=== PATIENT | female | born 1960 | race Caucasian/White ===

== ENCOUNTER 2016-10-12 11:43 | Observation (INO) | payer BC, OTHER ==
[2016-10-12] VITALS (9 sets, daily range): BP systolic 119–149; BP diastolic 59–83; PULSE 57–76; RESP 16–20; TEMP 97.6–98.4; O2SAT 96–98
[~2016-10-12] VITALS: Ht 167.6 cm; Wt 72.5 kg
[~2016-10-12 11:43] MED LIST: AMIT25TA9 PO; BUPR75TA PO; BUTA1CAP PO; DICL1GEL TOPICAL; HYDR-3580 PO; MELO-1 PO; TRIA.1%T TOP
--- NOTE | 2016-10-12 13:25 | PD ---
HPI Chief Complaint: Headache Time Seen by Provider: 12:35 Travel History International Travel<30 days: No Contact w/Intl Traveler<30days: No Traveled to known affect area: No History of Present Illness HPI 56-year-old female came to the emergency room with history of headache which is chronic but also on and off slurred speech since yesterday and right arm heaviness today. Patient cannot give an exact time when she noticed her right arm heaviness. However her daughter had taken her to the [place] urgent care where as the nurse was examining she noticed a heaviness. At that point she was recommended to go to an emergency room since these could be strokelike symptoms. Patient does not have a primary care. She does see a neurologist Dr. Aly for her chronic pain. Patient drinks alcohol every day and as per her own admission 3-4 drinks. Her last drink was last night which was beer and a glass of wine. Vital signs are stable. Currently she does not have slurred speech. PFSH Past Medical History Narrative Medical List of her past medical, surgical, social and family history is reviewed from the nursing note. Arthritis: Yes Anxiety: Yes Depression: Yes Cancer: No Cardiovascular Problems: No Cerebrovascular Accident: No Diminished Hearing: No Endocrine: No Gastrointestinal Disorders: No GERD: No Genitourinary: No Headaches: Yes Hiatal Hernia: No Immune Disorder: No Implanted Vascular Access Dvce: No Medical other: Yes (vertigo) Musculoskeletal: Yes Neurologic: Yes Psychiatric: Yes Respiratory: No Migraines: No Myocardial Infarction: No Seizures: No Ulcer: No Menopausal: Yes : 9 Para: 3 Past Surgical History Abdominal Surgery: Yes (APPENDECTOMY) Section: Yes (X 3) Gynecologic Surgery: Yes () Social History Alcohol Use: Yes (2 DRINKS DAILY-MOSTLY WINE) Tobacco Use: Yes (1 CIG A DAY) Substance Use: No Allergies-Medications (Allergen,Severity, Reaction): Coded Allergies: penicillin G (Unverified Allergy, Unknown, 10/12/16) Comments List of her allergies reviewed from the nursing note. Reported Meds & Prescriptions Reported Meds & Active Scripts Active Amitriptyline (Amitriptyline HCl) 25 Mg Tab 25-50 Mg PO HS Bupropion HCl 75 Mg Tab 75 Mg PO TID Reported Fioricet (Tnnqyxvrik-Mzuyazgqqdinp-Vyfcayxv) 50-300-40 Mg Cap 1 Cap PO Q6HR PRN Meloxicam 15 Mg Tab 15 Mg PO DAILY Hydrocodone-Acetaminophen 7.5-325 mg Tab 1 Tab PO Q4H PRN Narrative Medication List of her home medications reviewed from the nursing note. Review of Systems Except as stated in HPI: all other systems reviewed are Neg Physical Exam Narrative GENERAL: Awake, alert, no obvious distress SKIN: Focused skin assessment warm/dry. HEAD: Atraumatic. Normocephalic. EYES: Pupils equal and round. No scleral icterus. No injection or drainage. ENT: No nasal bleeding or discharge. Mucous membranes pink and moist. NECK: Trachea midline. No JVD. CARDIOVASCULAR: Regular rate and rhythm. No murmur appreciated. RESPIRATORY: No accessory muscle use. Clear to auscultation. Breath sounds equal bilaterally. GASTROINTESTINAL: Abdomen soft, non-tender, nondistended. Hepatic and splenic margins not palpable. MUSCULOSKELETAL: No obvious deformities. No clubbing. No cyanosis. No edema. NEUROLOGICAL: Awake and alert. No obvious cranial nerve deficits. Motor grossly within normal limits. Normal speech. NIH stroke score of 0 PSYCHIATRIC: Appropriate mood and affect; insight and judgment normal. Data Data Last Documented VS Vital Signs Date Time Temp Pulse Resp B/P (MAP) Pulse Ox O2 Delivery O2 Flow Rate FiO2 10/12/16 14:30 58 18 139/73 (95) 96 Room Air 10/12/16 11:44 98.4 Orders Orders Electrocardiogram (10/12/16 13:25) Prothrombin Time / Inr (Pt) (10/12/16 13:25) Complete Blood Count With Diff (10/12/16 13:25) Basic Metabolic Panel (Bmp) (10/12/16 13:25) Troponin I (10/12/16 13:25) Urinalysis - C+S If Indicated (10/12/16 13:25) Ct Brain W/O Iv Contrast(Rout) (10/12/16 13:25) Ecg Monitoring (10/12/16 13:25) Iv Access Insert/Monitor (10/12/16 13:25) Oximetry (10/12/16 13:25) Sodium Chloride 0.9% Flush (Ns Flush) (10/12/16 13:30) Mra Brain W/O Contrast (Cow) (10/12/16 ) Admit Order (Ed Use Only) (10/12/16 16:00) Mri Brain W/O Contrast (10/12/16 ) Labs Laboratory Tests Test 10/12/16 13:50 10/12/16 14:40 White Blood Count 4.5 TH/MM3 Red Blood Count 4.64 MIL/MM3 Hemoglobin 14.1 GM/DL Hematocrit 42.8 % Mean Corpuscular Volume 92.3 FL Mean Corpuscular Hemoglobin 30.5 PG Mean Corpuscular Hemoglobin Concent 33.0 % Red Cell Distribution Width 11.9 % Platelet Count 294 TH/MM3 Mean Platelet Volume 8.9 FL Neutrophils (%) (Auto) 55.4 % Lymphocytes (%) (Auto) 33.2 % Monocytes (%) (Auto) 8.2 % Eosinophils (%) (Auto) 2.0 % Basophils (%) (Auto) 1.2 % Neutrophils # (Auto) 2.5 TH/MM3 Lymphocytes # (Auto) 1.5 TH/MM3 Monocytes # (Auto) 0.4 TH/MM3 Eosinophils # (Auto) 0.1 TH/MM3 Basophils # (Auto) 0.1 TH/MM3 CBC Comment DIFF FINAL Differential Comment Prothrombin Time 10.0 SEC Prothromb Time International Ratio 0.9 RATIO Blood Urea Nitrogen 12 MG/DL Creatinine 0.61 MG/DL Random Glucose 104 MG/DL Calcium Level 9.6 MG/DL Sodium Level 141 MEQ/L Potassium Level 3.7 MEQ/L Chloride Level 107 MEQ/L Carbon Dioxide Level 25.8 MEQ/L Anion Gap 8 MEQ/L Estimat Glomerular Filtration Rate 101 ML/MIN Troponin I LESS THAN 0.02 NG/ML Ethyl Alcohol Level LESS THAN 3 MG/DL Urine Color LIGHT-YELLOW Urine Turbidity CLEAR Urine pH 6.5 Urine Specific [place] 1.010 Urine Protein NEG mg/dL Urine Glucose (UA) NEG mg/dL Urine Ketones NEG mg/dL Urine Occult Blood NEG Urine Nitrite NEG Urine Bilirubin NEG Urine Urobilinogen LESS THAN 2.0 MG/DL Urine Leukocyte Esterase SMALL Urine WBC 5 /hpf Urine Squamous Epithelial Cells 2 /hpf Urine Mucus FEW /lpf Microscopic Urinalysis Comment CULT NOT INDICATED Urine Opiates Screen NEG Urine Buprenorphine NEG Heroin Level NEG Oxycodone Level POS Urine Methadone Level NEG Urine Hydromorphone Level NEG Urine Fentanyl Level NEG Urine Barbiturates Screen POS Urine Barbiturates POS Urine Gabapentin NEG Urine Phencyclidine (PCP) Level NEG Urine MDPV + Mephedrone NEG Urine Amphetamines Screen NEG Urine MDMA & Metabolites NEG Urine Benzodiazepines Screen NEG Urine Cocaine Screen NEG Urine Cannabinoids Screen NEG Urine Synthetic THC (K2) NEG MDM Medical Decision Making Medical Screen Exam Complete: Yes Emergency Medical Condition: Yes Medical Record Reviewed: Yes Interpretation(s) Twelve-lead EKG was reviewed by me. Normal sinus rhythm, normal axis, nonspecific ST-T wave changes. Heart rate of 63 bpm. Differential Diagnosis TIA, narcotics related slurred speech Narrative Course 4:06 PM blood test results are within acceptable limits. CT scan of her head was negative. I have ordered MRI of her brain and MRA. I have admitted her to the residents for 24-hour observation. I discussed this with the patient and her daughter and they are agreeable to the plan. Procedures EKG Prior to Arrival: No Diagnosis Primary Impression: TIA (transient ischemic attack) Qualified Codes: G45.9 - Transient cerebral ischemic attack, unspecified Admitting Information Admitting Physician Requests: Observation Ofe Ruffin MD Oct 12, 2016 13:25
[2016-10-12] MEDS ORDERED: SODIUM CHLORIDE 0.9% FLUSH 10 ML FLUSH IVF PRN (13:30)
[2016-10-12 14:26] LABS: AUTOMATED NEUTROPHIL # 2.5 TH/MM3 (1.8-7.7); BASOPHIL # 0.1 TH/MM3 (0-0.2); BASOPHIL % 1.2 % (0.0-2.0); EOSINOPHIL # 0.1 TH/MM3 (0-0.4); HEMATOCRIT 42.8 % (35.0-46.0); HEMO FLAGS DIFF FINAL; LYMPH % 33.2 % (9.0-44.0); LYMPHOCYTE # 1.5 TH/MM3 (1.0-4.8); MEAN CELL VOLUME 92.3 FL (80.0-100.0); MEAN CORPUSCULAR HEMOGLOBIN 30.5 PG (27.0-34.0); MONO % 8.2 % (0.0-8.0); NEUT % 55.4 % (16.0-70.0); PLATELET COUNT 294 TH/MM3 (150-450); RED BLOOD COUNT 4.64 MIL/MM3 (4.00-5.30); RED CELL DISTRIBUTION WIDTH 11.9 % (11.6-17.2); WHITE BLOOD COUNT 4.5 TH/MM3 (4.0-11.0)
[2016-10-12 14:43] LABS: INTERNATIONAL NORMALIZED RATIO 0.9 RATIO
[2016-10-12 14:57] LABS: ANION GAP 8 MEQ/L (5-15); BICARBONATE 25.8 MEQ/L (21.0-32.0); BLOOD UREA NITROGEN 12 MG/DL (7-18); CHLORIDE 107 MEQ/L (98-107); GLOMERULAR FILTRATION RATE 101 ML/MIN (>89); POTASSIUM 3.7 MEQ/L (3.5-5.1); SODIUM (NA) 141 MEQ/L (136-145)
--- NOTE | 2016-10-12 15:00 | RADRPT ---
EXAM DATE/TIME: 10/12/2016 14:38 [facility] COMPARISON: No previous studies available for comparison. INDICATIONS : Pressure and pain behind right eye . RADIATION DOSE: 56.46 CTDIvol (mGy) MEDICAL HISTORY : Migraines SURGICAL HISTORY : Appendectomy. section. ENCOUNTER: Initial ACUITY: 1 day PAIN SCALE: 10/10 LOCATION: Right cranial TECHNIQUE: Multiple contiguous axial images were obtained of the head. Using automated exposure control and adj ustment of the mA and/or kV according to patient size, radiation dose was kept as low as reasonably a chievable to obtain optimal diagnostic quality images. DICOM format image data is available electro nically for review and comparison. FINDINGS: CEREBRUM: The ventricles are normal for age. No evidence of midline shift, mass lesion, hemorrhage or acute in farction. No extra-axial fluid collections are seen. POSTERIOR FOSSA: The cerebellum and brainstem are intact. The 4th ventricle is midline. The cerebellopontine angle i s unremarkable. EXTRACRANIAL: The visualized portion of the orbits is intact. SKULL: The calvaria is intact. No evidence of skull fracture. CONCLUSION: Normal examination. Iglesia Mccurdy MD on October 12, 2016 at 14:58 Board Certified Radiologist. This report was verified electronically.
[2016-10-12 15:43] LABS: BLOOD, URINE NEG (NEG); COMMENT (UR) CULT NOT INDICATED; CULTURE IF INDICATED CULT NOT INDICATED; GLUCOSE,URINE NEG (NEG); KETONE, URINE NEG (NEG); MUCUS URINE FEW /lpf (OCC); NITRITE,URINE NEG (NEG); PH, URINE 6.5 (5.0-8.5); SQUAMOUS EPITHELIAL CELL URINE 2 /hpf (0-5); URINE COLOR LIGHT-YELLOW (YELLW/STRAW)
[2016-10-12] MEDS ORDERED: SODIUM CHLORIDE 0.9% FLUSH 10 ML FLUSH IV FLUSH PRN (16:45)
--- NOTE | 2016-10-12 16:45 | HHI.HP ---
HPI Service Family Medicine Primary Care Physician No Primary Care Physician Admission Diagnosis TIA Diagnoses: International Travel<30 Days: No Contact w/Intl Traveler<30days: No Known Affected Area: No History of Present Illness Patient is a 56-year-old female, with long hx of vertigo and allergic congestion , presenting for a episode of vertigo this morning and an episode of slurred speech yesterday. Patient states she got up at 6:30 AM this morning because she felt nausea and dizziness. She has had nausea and dizziness over the past few years. Was much worse this morning than it has been before. She was so disoriented that she couldn't even walk to the bathroom and she banged into osorio and doors on the way to her bathroom. While she was dizzy and nauseous she also felt her right arm tingling and weak. These symptoms soon resolved. He has had a continued headache over the last few days especially over the right temporalis area. She was swimming yesterday and she thinks she can feel that her right ear is clotted. However she has had issues with her right ear in the past. She has gone to multiple doctors and attempts to be treated for assumed to Mnire's disease but because she has issues obtaining insurance this has not been possible. Patient states she has had multiple episodes of dizziness over the last few years; consisting of dizziness at work and feeling off balance at work. 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 She spent the last 3 days outdoors working and went outside to the yesterday. Outside at the yesterday she had an episode where her speech was slurred. She was not drinking any alcohol at this time and she drank sufficient fluids throughout the day. (Margarita Bowles MD R2) Review of Systems Constitutional: DENIES: Fatigue, Fever Endocrine: DENIES: Abnorml menstrual pattern Eyes: DENIES: Diplopia, Eye inflammation Ears, nose, mouth, throat: DENIES: Hoarseness, Odynophagia Respiratory: DENIES: Snoring, Wheezing Cardiovascular: DENIES: Syncope, Claudication Gastrointestinal: DENIES: Bloody stools, Difficulty Swallowing Genitourinary: DENIES: Urinary frequency, Vaginal discharge Musculoskeletal: DENIES: Stiffness Integumentary: DENIES: Rash Hematologic/lymphatic: DENIES: Lymphadenopathy Immunologic/allergic: DENIES: Urticaria Neurologic: DENIES: Tremor Psychiatric: DENIES: Depression, Delusions (Margarita Bowles MD R2) Past Family Social History Past Medical History anxiety 2 herniated discs in back migraines for many years vertigo since 1996 - was told by that she has Mnire's disease, but she cannot follow up because she did not have insurance Past Surgical History c/s x 2 appendectomy (Margarita Bowles MD R2) Allergies: Coded Allergies: penicillin G (Unverified Allergy, Unknown, 10/12/16) Family History father- [place] at 46 mother - breast ca at 62 Social History denies tobacco 4 glasses of wine per day, last drink was last night THC use, no IV drug use lives at home with , 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 SKIN: No rashes, ecchymoses or lesions. Cool and dry. HEAD: Atraumatic. Normocephalic. No temporal or scalp tenderness. EYES: Pupils equal round and reactive. Extraocular motions intact. No scleral icterus. No injection or drainage. ENT: Nose without bleeding, purulent drainage or septal hematoma. Throat without erythema, tonsillar hypertrophy or exudate. Uvula midline. Airway patent. Tympanic membrane visible and ears bilaterally. No erythema, pus, or cerumen blocking tympanic membrane NECK: Trachea midline. No JVD or lymphadenopathy. Supple, nontender, no meningeal signs. CARDIOVASCULAR: Regular rate and rhythm without murmurs, gallops, or rubs. RESPIRATORY: Clear to auscultation. Breath sounds equal bilaterally. No wheezes , rales, or rhonchi. GASTROINTESTINAL: Abdomen soft, non-tender, nondistended. No hepato-splenomegaly , or palpable masses. No guarding. MUSCULOSKELETAL: Extremities without clubbing, cyanosis, or edema. No joint tenderness, effusion, or edema noted. No calf tenderness. Negative Homans sign bilaterally. NEUROLOGICAL: Awake and alert. Cranial nerves II through XII intact. Motor and sensory grossly within normal limits. Five out of 5 muscle strength in all muscle groups. Normal speech. Laboratory Laboratory Tests Test 10/12/16 13:50 10/12/16 14:40 White Blood Count 4.5 Red Blood Count 4.64 Hemoglobin 14.1 Hematocrit 42.8 Mean Corpuscular Volume 92.3 Mean Corpuscular Hemoglobin 30.5 Mean Corpuscular Hemoglobin Concent 33.0 Red Cell Distribution Width 11.9 Platelet Count 294 Mean Platelet Volume 8.9 Neutrophils (%) (Auto) 55.4 Lymphocytes (%) (Auto) 33.2 Monocytes (%) (Auto) 8.2 Eosinophils (%) (Auto) 2.0 Basophils (%) (Auto) 1.2 Neutrophils # (Auto) 2.5 Lymphocytes # (Auto) 1.5 Monocytes # (Auto) 0.4 Eosinophils # (Auto) 0.1 Basophils # (Auto) 0.1 CBC Comment DIFF FINAL Differential Comment Prothrombin Time 10.0 Prothromb Time International Ratio 0.9 Blood Urea Nitrogen 12 Creatinine 0.61 Random Glucose 104 Calcium Level 9.6 Sodium Level 141 Potassium Level 3.7 Chloride Level 107 Carbon Dioxide Level 25.8 Anion Gap 8 Estimat Glomerular Filtration Rate 101 Troponin I LESS THAN 0.02 Urine Color LIGHT-YELLOW Urine Turbidity CLEAR Urine pH 6.5 Urine Specific [place] 1.010 Urine Protein NEG Urine Glucose (UA) NEG Urine Ketones NEG Urine Occult Blood NEG Urine Nitrite NEG Urine Bilirubin NEG Urine Urobilinogen LESS THAN 2.0 Urine Leukocyte Esterase SMALL Urine WBC 5 Urine Squamous Epithelial Cells 2 Urine Mucus FEW Microscopic Urinalysis Comment CULT NOT INDICATED (Margarita Bowles MD R2) Result Diagram: 10/12/16 1350 10/12/16 1350 Caprini VTE Risk Assessment Caprini VTE Risk Assessment: No/Low Risk (score <= 1) Caprini Risk Assessment Model Point Value = 1 Point Value = 2 Point Value = 3 Point Value = 5 Age 41-60 Minor surgery BMI > 25 kg/m2 Swollen legs Varicose veins or History of unexplained or recurrent spontaneous Oral contraceptives or hormone replacement Sepsis (< 1 month) Serious lung disease, including pneumonia (< 1 month) Abnormal pulmonary function Acute myocardial infarction Congestive heart failure (< 1 month) History of inflammatory bowel disease Medical patient at bed rest Age 61-74 Arthroscopic surgery Major open surgery (> 45 min) Laparoscopic surgery (> 45 min) Malignancy Confined to bed (> 72 hours) Immobilizing plaster cast Central venous access Age >= 75 History of VTE Family history of VTE Factor V Leiden Prothrombin [id number] Lupus anticoagulant Anticardiolipin antibodies Elevated serum homocysteine Heparin-induced thrombocytopenia Other congenital or acquired thrombophilia Stroke (< 1 month) Elective arthroplasty Hip, pelvis, or leg fracture Acute spinal cord injury (< 1 month) Prophylaxis Regimen Total Risk Factor Score Risk Level Prophylaxis Regimen 0-1 Low Early ambulation 2 Moderate Order ONE of the following: *Sequential Compression Device (SCD) *Heparin 5000 units SQ BID 3-4 Higher Order ONE of the following medications: *Heparin 5000 units SQ TID *Enoxaparin/Lovenox 40 mg SQ daily (WT < 150 kg, CrCl > 30 mL/min) *Enoxaparin/Lovenox 30 mg SQ daily (WT < 150 kg, CrCl > 10-29 mL/min) *Enoxaparin/Lovenox 30 mg SQ BID (WT < 150 kg, CrCl > 30 mL/min) AND/OR *Sequential Compression Device (SCD) 5 or more Highest Order ONE of the following medications: *Heparin 5000 units SQ TID (Preferred with Epidurals) *Enoxaparin/Lovenox 40 mg SQ daily (WT < 150 kg, CrCl > 30 mL/min) *Enoxaparin/Lovenox 30 mg SQ daily (WT < 150 kg, CrCl > 10-29 mL/min) *Enoxaparin/Lovenox 30 mg SQ BID (WT < 150 kg, CrCl > 30 mL/min) AND *Sequential Compression Device (SCD) (Margarita Bowles MD R2) Assessment and Plan Assessment and Plan 56-year-old female, hx of chronic migraine and vertigo, presents for episode of vertigo and disorientation this AM; TIA vs. BPPV vs. Mnire's disease. Code Status Full Code (Margarita Bowles MD R2) Attending Attestation Patient seen and examined. Case reviewed and discussed with the resident team. Agree with plan of care as discussed with me and documented in the resident note. pt seen on admission with residents in ED. observed their H&P and discussed the pts management. (Khushi Mcniel MD) Problem List: (1) Anxiety ICD Codes: F41.9 - Anxiety disorder, unspecified Status: Chronic Plan: Patient states she has chronic anxiety and has never seen a psychiatrist. We will continue to monitor and inquire about her desire to see a psychiatrist. - No medications for now (2) Alcohol consumption heavy ICD Codes: F10.10 - Alcohol abuse Status: Acute Plan: Patient drinks 4-5 drinks per day, and per previous notes as been admitted for alcohol abuse in the past. - Alcohol abuse counseling - Follow up [facility] protocol (3) Lumbar disc disease with radiculopathy ICD Codes: M51.16 - Lumbar disc herniation with radiculopathy Status: Acute Plan: Patient sees Dr. Aly for pain management .Chronic daily pain due to 2 slipped disks and back. Continue home medication of [place] 7.5325 every 4 when necessary for pain (4) Vertigo ICD Codes: R42 - Dizziness and giddiness Status: Acute Plan: Patient states she has been told before that she is Mnire's disease in the vertigo does sound chronic in nature, occurring daily and during all activities. Differential for acute worsening of vertigo includes Mnire's disease versus TIA versus benign positional vertigo. Physical exam findings revealed clear tympanic membranes, and no neurological deficits. - head MRA negative - carotid artery ultrasound : Official report pending - MRI brain without contrast; no acute intracranial abnormality. Minimal periventricular and subcortical white matter signal change which may represent chronic microvascular ischemic change. Fluid is present in the right mastoid air cells - Head CT negative - We will consider workup for Mnire's disease (5) Migraine ICD Codes: G43.909 - Migraine, unspecified, not intractable, without status migrainosus Status: Chronic Plan: Patient states she takes Fioricet daily in order to prevent her headache from becoming a migraine. Fioricet every 6 when necessary (6) FEN/DVT PPX Status: Acute Plan: Fluids: PO fluid Electrolytes: f/u BMP Nutrition: Regular diet GI: n/a DVT: Heparin 5000 TID (Margarita Bowles MD R2) Physician Certification 2 Midnight Certification Type: Admission for Inpatient Services Order for Inpatient Services The services are ordered in accordance with Medicare regulations or non- Medicare payer requirements, as applicable. In the case of services not specified as inpatient-only, they are appropriately provided as inpatient services in accordance with the 2-midnight benchmark. Estimated LOS (days): 2 days is the estimated time the patient will need to remain in the hospital, assuming treatment plan goals are met and no additional complications. Post-Hospital Plan: Home (Margarita Bowles MD R2) Post-Hospital Plan: Home Notes: she is an observation pt (Khushi Mcneil MD) Problem Qualifiers (1) Migraine: Qualified Codes: G43.909 - Migraine, unspecified, not intractable, without status migrainosus Margarita Bowles MD R2 Oct 12, 2016 16:45 Khushi Mcniel MD Oct 13, 2016 13:14
[2016-10-12] MEDS ORDERED: SODIUM CHLORIDE 0.9% FLUSH 5 ML FLUSH IV FLUSH PRN (17:00)
[2016-10-12] MEDS ORDERED: DEXTROSE 50% IN WATER 50 ML VIAL(D50) IV PUSH PRN (17:00)
[2016-10-12] MEDS ORDERED: ACETAMIN 325 MG/BUTALBITAL 50 MG/CAFFEINE 40 MG TAB PO PRN (17:15)
[2016-10-12] MEDS ORDERED: ACETAMINOPHEN/HYDROcodone 325 MG/7.5 MG TAB PO PRN (17:15)
--- NOTE | 2016-10-12 18:20 | RADRPT ---
EXAM DATE/TIME: 10/12/2016 17:39 [facility] COMPARISON: MRI BRAIN W/O CONTRAST, October 12, 2016, 17:39. CT BRAIN W/O CONTRAST, October 12, 2016, 14:38. INDICATIONS : Cephalgia. CVA. Right arm weakness and dizziness. MEDICAL HISTORY : Arthritis. SURGICAL HISTORY : Appendectomy. section. ENCOUNTER: Subsequent ACUITY: 2 day PAIN SCORE: 3/10 LOCATION: Right head. Please note a normal MRA of the brain does not entirely exclude the possibility of a small aneurysm, nor the possibility of distal intracranial vessel disease. TECHNIQUE: 3D time of flight MRA was performed. Source images, multiplanar STS MIP, and 3D volume MIP reconstru ctions were reviewed. FINDINGS: Anterior circulation: The internal carotid arteries demonstrate no abnormality or atherosclerotic change. A1 segments and m ore distal anterior cerebral arteries are symmetric and within normal limits. The middle cerebral art marques branches demonstrate symmetric flow related enhancement. No aneurysm or high-grade stenosis is id entified. Posterior circulation: There are patent posterior cerebral arteries bilaterally. Right vertebral artery is dominant. The bas ilar artery and posterior cerebral arteries demonstrate no significant stenosis or abnormality. No an eurysm is visualized. CONCLUSION: No acute intracranial vascular abnormality is identified. Krzysztof Ross MD on October 12, 2016 at 18:16 Board Certified Radiologist. This report was verified electronically.
--- NOTE | 2016-10-12 18:23 | RADRPT ---
EXAM DATE/TIME: 10/12/2016 17:39 [facility] COMPARISON: CT BRAIN W/O CONTRAST, October 12, 2016, 14:38. INDICATIONS : Cephalgia. CVA. Right arm weakness and dizziness. MEDICAL HISTORY : Arthritis. SURGICAL HISTORY : Appendectomy. section. ENCOUNTER: Subsequent ACUITY: 2 day PAIN SCORE: 3/10 LOCATION: Right head. TECHNIQUE: Multiplanar, multisequence MRI of the brain was performed without contrast. FINDINGS: CEREBRUM: The ventricles are normal. No evidence of midline shift, mass lesion, hemorrhage or acute infarction . No extraaxial fluid collections are seen. The pituitary gland and suprasellar cistern are normal in configuration. WHITE MATTER: There are a few punctate areas of flair/T2 increased signal in the periventricular and subcortical re gions bilaterally. POSTERIOR FOSSA: The cerebellum and brainstem demonstrate no acute finding. The 4th ventricle is midline. The cerebel lopontine angle is unremarkable. The cerebellar tonsils are normal in position. DIFFUSION IMAGING: No focal areas of restricted diffusion are seen. No evidence of acute infarction. EXTRACRANIAL: There is fluid in the right mastoid air cells. Otherwise, the visualized portions of the orbits and p aranasal sinuses are unremarkable. CONCLUSION: 1. No acute intracranial abnormality is identified. There is minimal periventricular and subcortical white matter signal change which may represent chronic microvascular ischemic change. 2. Fluid is present in the right mastoid air cells. Krzysztof Ross MD on October 12, 2016 at 18:19 Board Certified Radiologist. This report was verified electronically.
[2016-10-12] MEDS: ASPIRIN 81 MG CHEW TAB PO SCH (18:38)
[2016-10-12] MEDS: HEPARIN SODIUM - SQ 10,000 UNITS/ML VIAL SQ SCH ×2 (18:38→21:17)
[2016-10-12] MEDS ORDERED: SODIUM CHLORIDE 0.9% FLUSH 5 ML FLUSH IV FLUSH SCH (21:00)
[2016-10-12] MEDS: INSULIN ASPART SUPPLEMENTAL SCALE SQ SCH (21:00)
[2016-10-12] MEDS: SODIUM CHLORIDE 0.9% FLUSH 10 ML FLUSH IV FLUSH SCH (21:17)
--- NOTE | 2016-10-12 22:02 | RADRPT ---
EXAM DATE/TIME: 10/12/2016 19:15 [place] COMPARISON: No previous studies available for comparison. INDICATIONS : Cerebrovascular accident. MEDICAL HISTORY : Arthritis. Depression. Anxiety. Neurological problems. SURGICAL HISTORY : Appendectomy. section. ENCOUNTER: Initial ACUITY: 1 day PAIN SCORE: 0/10 LOCATION: Bilateral neck PEAK SYSTOLIC VELOCITIES (cm/sec): ICA/CCA RATIO: Right: 1.8 Left: 2.2 ICA: Right: 110 Left: 118 CCA: Right: 71 Left: 73 ECA: Right: 80 Left: 85 VERTEBRAL: Right: 58 antegrade Left: 52 antegrade Elevated flow velocities and ICA/CCA ratios have been found to correlate with increased degrees of vessel stenosis, calculated as percentage of diameter relative to a normal segment of distal ICA/CCA FINDINGS: RIGHT CAROTID: No significant stenosis is visualized. The waveforms are within normal limits. LEFT CAROTID: No significant stenosis is visualized. The waveforms are within normal limits. VERTEBRAL ARTERIES: Antegrade flow is seen in both vertebral arteries. MISCELLANEOUS: None. CONCLUSION: 1. No significant atherosclerotic disease or stenosis is identified within either internal carotid ar joaquin. 2. There is antegrade flow in both vertebral arteries. Krzysztof Ross MD on October 12, 2016 at 22:00 Board Certified Radiologist. This report was verified electronically.
[2016-10-13] VITALS (8 sets, daily range): BP systolic 120–136; BP diastolic 56–64; PULSE 57–80; RESP 18–21; TEMP 97.7–98.5; O2SAT 95–96
[2016-10-13 00:29] LABS: CREATINE KINASE 74 U/L (26-192)
[2016-10-13] MEDS: INSULIN ASPART SUPPLEMENTAL SCALE SQ SCH ×2 (06:31→12:23)
[2016-10-13] MEDS: HEPARIN SODIUM - SQ 10,000 UNITS/ML VIAL SQ SCH ×2 (06:31→14:00)
[2016-10-13] MEDS: SODIUM CHLORIDE 0.9% FLUSH 10 ML FLUSH IV FLUSH SCH (09:00)
[2016-10-13] MEDS: ASPIRIN 81 MG CHEW TAB PO SCH (09:00)
--- NOTE | 2016-10-13 09:31 | HHI.DCPOC ---
Discharge Care Plan Diagnosis: (1) Vertigo (2) Tinnitus Goals to Promote Your Health * To prevent worsening of your condition and complications * To maintain your health at the optimal level Directions to Meet Your Goals Take your medications as prescribed Follow your dietary instruction Follow activity as directed Keep your appointments as scheduled Take your immunizations and boosters as scheduled If your symptoms worsen call your PCP, if no PCP go to Urgent Care Center or Emergency Room Smoking is Dangerous to Your Health. Avoid second hand smoke Call the 24-hour hour crisis hotline for domestic abuse at Bryson Ramey MD R3 Oct 13, 2016 09:31
--- NOTE | 2016-10-13 09:34 | HHI.HP ---
[facility] Service Family Medicine Primary Care Physician No Primary Care Physician Admission Diagnosis TIA Diagnoses: (1) TIA (transient ischemic attack) Diagnosis: Principal (2) Vertigo Diagnosis: Principal (3) Lumbar disc disease with radiculopathy Diagnosis: Principal (4) Migraine Diagnosis: Principal (5) Anxiety Diagnosis: Principal (6) Alcohol consumption heavy Diagnosis: Principal (7) FEN/DVT PPX Diagnosis: Principal International Travel<30 Days: No Contact w/Intl Traveler<30days: No Known Affected Area: No History of Present Illness Ms Mcintyre is a 56-year-old female, with long hx of vertigo and allergic congestion, presented with an episode of vertigo the morning of admission and an episode of slurred speech the day before admission. Patient states she got up at 6:30 AM when she was admitted because she felt nausea and dizziness. She has had nausea and dizziness over the past few years off and on. This was much worse than it has been before. She was so "disoriented" that she couldn't even walk to the bathroom and she banged into osorio and doors on the way to her bathroom. While she was dizzy and nauseous she also felt her right arm tingling and weak. These symptoms soon resolved. Has had a continued headache over the last few days especially over the right temporal area. She was swimming and she thinks she can feel that her right ear is clogged. However she has had issues with her right ear in the past. She has gone to multiple doctors and attempts to be treated for assumed to Mnire's disease but because she has issues obtaining insurance this has not been possible. Patient states she has had multiple episodes of dizziness over the last few years; consisting of dizziness at work and feeling off balance at work. 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 She spent the last 3 days outdoors working and went outside to the yesterday. Outside at the yesterday she had an episode where her speech was slurred. She was not drinking any alcohol at this time and she drank sufficient fluids throughout the day. 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 Her headaches are nearly daily per pt. She has a history of migraines but no history of complicated migraines. She reports all her sxs are worse with stress. This am she is improved overall with less vertiginous sxs. She did have nystagmus when her head was turned to her left on exam today. She was reassured to know her MRI was fine. She has had no more numbness or problems with speech. She had used marijuana recently though it is unclear what temporal relationship the marijuana use and the slurred speech have. Review of Systems Other Constitutional: DENIES: Fatigue, Fever Endocrine: DENIES: Abnorml menstrual pattern Eyes: DENIES: Diplopia, Eye inflammation Ears, nose, mouth, throat: DENIES: Hoarseness, Odynophagia Respiratory: DENIES: Snoring, Wheezing Cardiovascular: DENIES: Syncope, Claudication Gastrointestinal: DENIES: Bloody stools, Difficulty Swallowing Genitourinary: DENIES: Urinary frequency, Vaginal discharge Musculoskeletal: DENIES: Stiffness Integumentary: DENIES: Rash Hematologic/lymphatic: DENIES: Lymphadenopathy Immunologic/allergic: DENIES: Urticaria Neurologic: DENIES: Tremor Psychiatric: DENIES: Depression, Delusions Past Family Social History Past Medical History anxiety 2 herniated discs in back migraines for many years vertigo since 1996 - was told by that she has Mnire's disease, but she cannot follow up because she did not have insurance Past Surgical History c/s x 2 appendectomy Allergies: Coded Allergies: penicillin G (Unverified Allergy, Unknown, 10/12/16) Family History father- ID at 46 mother - breast ca at 62 Social History denies tobacco 4 glasses of wine per day, last drink was last night THC use, no IV drug use lives at home with , 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 Physical Exam Vital Signs Vital Signs Date Time Temp Pulse Resp B/P (MAP) Pulse Ox O2 Delivery O2 Flow Rate FiO2 10/13/16 08:58 Room Air 10/13/16 08:58 97.7 80 18 136/61 (86) 95 10/13/16 07:40 64 10/13/16 04:43 97.8 57 19 120/56 (77) 96 10/13/16 04:00 60 10/13/16 00:00 66 10/12/16 23:00 97.6 63 20 119/59 (79) 96 10/12/16 20:47 60 10/12/16 20:09 98.1 62 20 147/83 (104) 97 10/12/16 18:39 67 18 143/79 (100) 96 10/12/16 18:27 96 21 10/12/16 17:26 76 18 149/76 (100) 98 Room Air 10/12/16 14:30 58 18 139/73 (95) 96 Room Air 10/12/16 14:30 57 18 139/73 (95) 96 Room Air 10/12/16 12:43 72 18 95 Room Air 10/12/16 12:43 72 18 141/77 (98) 96 Room Air 10/12/16 11:44 98.4 69 16 139/79 (99) 97 Room Air Physical Exam GENERAL: This is a well-nourished, well-developed patient, in no apparent distress. feeling well today SKIN: No rashes, ecchymoses or lesions. Cool and dry. HEAD: Atraumatic. Normocephalic. EYES: Pupils equal round and reactive. Extraocular motions intact. No scleral icterus. No injection or drainage. nystagmus with fast beat to right when her head was turned to the left ENT: Nose without bleeding, purulent drainage or septal hematoma. Throat without erythema, tonsillar hypertrophy or exudate. Uvula midline. Airway patent. Tympanic membrane visible and ears bilaterally. No erythema, pus, or cerumen blocking tympanic membrane NECK: Trachea midline. No JVD or lymphadenopathy. Supple, nontender, no meningeal signs. CARDIOVASCULAR: Regular rate and rhythm without murmurs, gallops, or rubs. RESPIRATORY: Clear to auscultation. Breath sounds equal bilaterally. No wheezes , rales, or rhonchi. GASTROINTESTINAL: Abdomen soft, non-tender, nondistended. No hepato-splenomegaly , or palpable masses. No guarding. MUSCULOSKELETAL: Extremities without clubbing, cyanosis, or edema. No joint tenderness, effusion, or edema noted. No calf tenderness. Negative Homans sign bilaterally. NEUROLOGICAL: Awake and alert. Cranial nerves II through XII intact. Motor and sensory grossly within normal limits. Five out of 5 muscle strength in all muscle groups. Normal speech. Laboratory Laboratory Tests Test 10/12/16 13:50 10/12/16 14:40 10/12/16 23:52 White Blood Count 4.5 Red Blood Count 4.64 Hemoglobin 14.1 Hematocrit 42.8 Mean Corpuscular Volume 92.3 Mean Corpuscular Hemoglobin 30.5 Mean Corpuscular Hemoglobin Concent 33.0 Red Cell Distribution Width 11.9 Platelet Count 294 Mean Platelet Volume 8.9 Neutrophils (%) (Auto) 55.4 Lymphocytes (%) (Auto) 33.2 Monocytes (%) (Auto) 8.2 Eosinophils (%) (Auto) 2.0 Basophils (%) (Auto) 1.2 Neutrophils # (Auto) 2.5 Lymphocytes # (Auto) 1.5 Monocytes # (Auto) 0.4 Eosinophils # (Auto) 0.1 Basophils # (Auto) 0.1 CBC Comment DIFF FINAL Differential Comment Prothrombin Time 10.0 Prothromb Time International Ratio 0.9 Blood Urea Nitrogen 12 Creatinine 0.61 Random Glucose 104 Calcium Level 9.6 Sodium Level 141 Potassium Level 3.7 Chloride Level 107 Carbon Dioxide Level 25.8 Anion Gap 8 Estimat Glomerular Filtration Rate 101 Troponin I LESS THAN 0.02 LESS THAN 0.02 Ethyl Alcohol Level LESS THAN 3 Urine Color LIGHT-YELLOW Urine Turbidity CLEAR Urine pH 6.5 Urine Specific [place] 1.010 Urine Protein NEG Urine Glucose (UA) NEG Urine Ketones NEG Urine Occult Blood NEG Urine Nitrite NEG Urine Bilirubin NEG Urine Urobilinogen LESS THAN 2.0 Urine Leukocyte Esterase SMALL Urine WBC 5 Urine Squamous Epithelial Cells 2 Urine Mucus FEW Microscopic Urinalysis Comment CULT NOT INDICATED Urine Opiates Screen NEG Urine Barbiturates Screen POS Urine Amphetamines Screen NEG Urine Benzodiazepines Screen NEG Urine Cocaine Screen NEG Urine Cannabinoids Screen NEG Total Creatine Kinase 74 Result Diagram: 10/12/16 1350 10/12/16 1350 Caprini VTE Risk Assessment Caprini VTE Risk Assessment: No/Low Risk (score <= 1) Caprini Risk Assessment Model Point Value = 1 Point Value = 2 Point Value = 3 Point Value = 5 Age 41-60 Minor surgery BMI > 25 kg/m2 Swollen legs Varicose veins or History of unexplained or recurrent spontaneous Oral contraceptives or hormone replacement Sepsis (< 1 month) Serious lung disease, including pneumonia (< 1 month) Abnormal pulmonary function Acute myocardial infarction Congestive heart failure (< 1 month) History of inflammatory bowel disease Medical patient at bed rest Age 61-74 Arthroscopic surgery Major open surgery (> 45 min) Laparoscopic surgery (> 45 min) Malignancy Confined to bed (> 72 hours) Immobilizing plaster cast Central venous access Age >= 75 History of VTE Family history of VTE Factor V Leiden Prothrombin [id number] Lupus anticoagulant Anticardiolipin antibodies Elevated serum homocysteine Heparin-induced thrombocytopenia Other congenital or acquired thrombophilia Stroke (< 1 month) Elective arthroplasty Hip, pelvis, or leg fracture Acute spinal cord injury (< 1 month) Prophylaxis Regimen Total Risk Factor Score Risk Level Prophylaxis Regimen 0-1 Low Early ambulation 2 Moderate Order ONE of the following: *Sequential Compression Device (SCD) *Heparin 5000 units SQ BID 3-4 Higher Order ONE of the following medications: *Heparin 5000 units SQ TID *Enoxaparin/Lovenox 40 mg SQ daily (WT < 150 kg, CrCl > 30 mL/min) *Enoxaparin/Lovenox 30 mg SQ daily (WT < 150 kg, CrCl > 10-29 mL/min) *Enoxaparin/Lovenox 30 mg SQ BID (WT < 150 kg, CrCl > 30 mL/min) AND/OR *Sequential Compression Device (SCD) 5 or more Highest Order ONE of the following medications: *Heparin 5000 units SQ TID (Preferred with Epidurals) *Enoxaparin/Lovenox 40 mg SQ daily (WT < 150 kg, CrCl > 30 mL/min) *Enoxaparin/Lovenox 30 mg SQ daily (WT < 150 kg, CrCl > 10-29 mL/min) *Enoxaparin/Lovenox 30 mg SQ BID (WT < 150 kg, CrCl > 30 mL/min) AND *Sequential Compression Device (SCD) Assessment and Plan Assessment and Plan 56-year-old female, hx of chronic migraine and vertigo, presented for episode of vertigo and disorientation ; TIA vs. BPPV vs. Mnire's disease. She is ready to go home today and is doing well so should be able to be discharged after PT works on her vertigo. Problem List: (1) TIA (transient ischemic attack) ICD Codes: G45.9 - Transient cerebral ischemic attack, unspecified Status: Acute Plan: her studies have not shown a CVA. Her vertigo, neck radiation to her arm and drug/alcohol use could account for her sxs that were possibly a TIA. She is eager to go home today and feels well. (2) Anxiety ICD Codes: F41.9 - Anxiety disorder, unspecified Status: Chronic Plan: Patient states she has chronic anxiety and has never seen a psychiatrist. We will continue to monitor and inquire about her desire to see a psychiatrist. she was encouraged to seek help from her primary care Dr. She is debating stopping her Insurance but I explained that was very risky. She is discouraged about her having cancer and prefers to go to a different clinic as she is not completely happy about his treatment. - No medications for now (3) Alcohol consumption heavy ICD Codes: F10.10 - Alcohol abuse Status: Acute Plan: Patient drinks 4-5 drinks per day, and per previous notes as been admitted for alcohol abuse in the past. - Alcohol abuse counseling - Follow up [facility] protocol (4) Lumbar disc disease with radiculopathy ICD Codes: M51.16 - Lumbar disc herniation with radiculopathy Status: Acute Plan: Patient sees Dr. Aly for pain management .Chronic daily pain due to 2 slipped disks and back. Continue home medication of [place] 7.5/325 every 4 when necessary for pain (5) Vertigo ICD Codes: R42 - Dizziness and giddiness Status: Acute Plan: Patient states she has been told before that she likely has Mnire's disease. the vertigo does sound chronic in nature, occurring daily and during all activities. Differential for acute worsening of vertigo includes Mnire's disease versus TIA versus benign positional vertigo. Physical exam findings revealed clear tympanic membranes, and no neurological deficits. - head MRA negative - carotid artery ultrasound : Official report pending - MRI brain without contrast; no acute intracranial abnormality. Minimal periventricular and subcortical white matter signal change which may represent chronic microvascular ischemic change. Fluid is present in the right mastoid air cells. encouraged her to use steroid nasal sprays which she has started using - Head CT negative - We will consider workup for Mnire's disease. encouraged to see ENT as an outpt. asked PT to see her in the hospital to perform maneuvers to help her vertigo (6) Migraine ICD Codes: G43.909 - Migraine, unspecified, not intractable, without status migrainosus Status: Chronic Plan: Patient states she takes Fioricet daily in order to prevent her headache from becoming a migraine. Fioricet every 6 when necessary she can be treated as an outpt for this. unclear if she has some problems with headaches from allergies plus some that sound like more typical migraines (7) FEN/DVT PPX Status: Acute Plan: Fluids: PO fluid Electrolytes: f/u BMP Nutrition: Regular diet GI: n/a DVT: Heparin 5000 TID Problem Qualifiers (1) TIA (transient ischemic attack): Qualified Codes: G45.9 - Transient cerebral ischemic attack, unspecified (2) Migraine: Qualified Codes: G43.909 - Migraine, unspecified, not intractable, without status migrainosus Khushi Mcneil MD Oct 13, 2016 09:34
[2016-10-13 10:26] LABS: AUTOMATED NEUTROPHIL # 1.8 TH/MM3 (1.8-7.7); BASOPHIL % 1.2 % (0.0-2.0); EOSINOPHIL # 0.1 TH/MM3 (0-0.4); EOSINOPHIL % 2.2 % (0.0-4.0); HEMATOCRIT 40.7 % (35.0-46.0); HEMO FLAGS DIFF FINAL; LYMPH % 38.1 % (9.0-44.0); LYMPHOCYTE # 1.3 TH/MM3 (1.0-4.8); MEAN CELL VOLUME 93.7 FL (80.0-100.0); MEAN CORPUSCULAR HEMOGLOBIN 30.8 PG (27.0-34.0); MEAN CORPUSCULAR HGB CONC 32.9 % (32.0-36.0); MONO % 7.4 % (0.0-8.0); NEUT % 51.1 % (16.0-70.0); PLATELET COUNT 248 TH/MM3 (150-450); RED BLOOD COUNT 4.34 MIL/MM3 (4.00-5.30); RED CELL DISTRIBUTION WIDTH 12.4 % (11.6-17.2); WHITE BLOOD COUNT 3.5 TH/MM3 (4.0-11.0)
[2016-10-13 10:51] LABS: ANION GAP 8 MEQ/L (5-15); BICARBONATE 22.8 MEQ/L (21.0-32.0); BLOOD UREA NITROGEN 11 MG/DL (7-18); CHLORIDE 106 MEQ/L (98-107); GLOMERULAR FILTRATION RATE 112 ML/MIN (>89); POTASSIUM 3.9 MEQ/L (3.5-5.1); SODIUM (NA) 137 MEQ/L (136-145)
[2016-10-13 10:56] LABS: CREATINE KINASE 66 U/L (26-192); HDL CHOLESTEROL 59.2 MG/DL (40.0-60.0); LDL CHOLESTEROL 101 MG/DL (0-99)
[2016-10-13 13:36] LABS: INTERNATIONAL NORMALIZED RATIO 0.9 RATIO
[2016-10-13 18:23] LABS: HEMOGLOBIN A1a 1.1 %; HEMOGLOBIN A1b 1.6 %; HEMOGLOBIN Ao 85.6 %; HEMOGLOBIN LA1C 2.1 %; HEMOGLOBIN P3 3.7 %
--- NOTE | 2016-10-13 19:38 | EKG ---
Date Performed: 10/13/2016 Time Performed: 01:25:42 PTAGE: 56 years EKG: Sinus rhythm NORMAL ECG PREVIOUS TRACING : 10/12/2016 13.31 Compared to prior tracing no significant change DOCTOR: John Patrick Interpretating Date/Time 10/13/2016 19:37:29
--- NOTE | 2016-10-13 20:01 | EKG ---
Date Performed: 10/12/2016 Time Performed: 13:31:35 PTAGE: 56 years EKG: Sinus rhythm NORMAL ECG NO PREVIOUS TRACING DOCTOR: John Patrick Interpretating Date/Time 10/13/2016 20:00:12
[2016-10-16 08:27] LABS: BATH SALTS (MDPV) UR NEG (NEG); ECSTASY (MDMA) UR NEG (NEG); GABAPENTIN UR NEG (NEG); HEROIN (6-ACETYLMORPHINE) UR NEG (NEG); HYDROMORPHONE U NEG (NEG); K2 SPICE UR NEG (NEG); OBMETHADONE UR NEG (NEG); PHENCYCLIDINE URINE NEG (NEG)
== END 2016-10-13 17:27 | disposition home or self-care (01) ==
LOC: NEPE 11:43 → NEDA 16:02 → NEPHCDU 19:00
PROVIDERS: ADMIT Family Medicine; ATTEND Family Medicine
DX: G45.9 Transient cerebral ischemic attack, unspecified (principal); R42 Dizziness and giddiness; H93.19 Tinnitus, unspecified ear; F41.9 Anxiety disorder, unspecified; F10.10 Alcohol abuse, uncomplicated; F12.90 Cannabis use, unspecified, uncomplicated; G43.909 Migraine, unspecified, not intractable, without status migrainosus; G89.29 Other chronic pain; M51.16 Intervertebral disc disorders with radiculopathy, lumbar region; Z72.0 Tobacco use
CPT/HCPCS: 70450; 70544; 70551; 80048; 80061; 80307; 81001; 82550; 82948; 83036; 84484; 85025; 85610; 92610; 93005; 93880; 94150; 96372; 97162; 97165; 99285; G0378; G0481; G8987; G8988; G8996; G8997; G8998; J1644